=== PATIENT | female | born 1965 | race African-American/Black ===

== ENCOUNTER 2016-10-10 15:33 | Emergency (ER) | payer OTHER ==
[~2016-10-10] VITALS: Ht 154.9 cm; Wt 79.4 kg
[~2016-10-10 15:33] MED LIST: Hydrocodone/Acetaminophen PO
[2016-10-10 17:34] LABS: BILIRUBIN,URINE NEGATIVE (NEG); GLUCOSE,URINE NEGATIVE (NEG); NITRITE,URINE NEGATIVE (NEG); PROTEIN,URINE NEGATIVE (NEG-TRACE); UROBILINOGEN,URINE 0.2 mg/dL (0.2 mg/dL)
[2016-10-10 17:41] LABS: BACTERIA,URINE FEW /HPF (0-FEW); RBC,URINE RARE /HPF (0-2); SQUAMOUS EPITHELIAL CELL,UR MANY /LPF; WBC,URINE RARE /HPF (0-4)
--- NOTE | 2016-10-10 17:59 | PHYS DOC ---
Past Medical History Past Medical History: No Pertinent History Past Surgical History: , Hysterectomy Additional Past Surgical Histo: C-sec x3, Alcohol Use: None Drug Use: None Adult General Chief Complaint Chief Complaint: ABDOMINAL PAIN HPI HPI 51-year-old female presenting the emergency department with difficulty urinating. She reports having history of a hysterectomy. She reports her ability to urinate being positional. She reports when she lifts her legs she is able to urinate however when she does not she is unable to urinate. He was previously referred for to urologist however has not made an appointment. He also complains of mild swelling of her ankles bilaterally. She complains of bilateral flank pain. The pain is sharp mild intermittent nonradiating and without alleviating factors. Not associated with fever. Review of systems is negative for chest pain shortness of breath fevers or chills. All other review of systems is negative unless otherwise noted in history of present illness. Review of Systems Review of Systems SEE ABOVE. Allergies Allergies Allergies Coded Allergies Type Severity Reaction Last Updated Verified Penicillins Allergy Intermediate 04/12/16 Yes egg Allergy Intermediate hives 04/12/16 Yes Physical Exam Physical Exam Constitutional: Well developed, well nourished, no acute distress, non-toxic appearance. HENT: Normocephalic, atraumatic, bilateral external ears normal, oropharynx moist, no oral exudates, nose normal. [] Eyes: PERRLA, EOMI, conjunctiva normal, no discharge. Neck: Normal range of motion, no tenderness, supple, no stridor. No JVD present. Cardiovascular:Heart rate regular rhythm, no murmur [] Lungs & Thorax: Bilateral breath sounds clear to auscultation . No crackles. Abdomen: Soft nontender abdomen without rebound tenderness or guarding present. Negative McBurneys point. Negative Lira sign. No ecchymosis present. Skin: Warm, dry, no erythema, no rash. [] Back: No tenderness, I'm unable to reproduce any tenderness in the CVA region upon palpation. Extremities: No tenderness, no cyanosis, no clubbing, ROM intact, trace edema. Neurologic: Alert and oriented X 3, normal motor function, normal sensory function, no focal deficits noted. [] Psychologic: Affect normal, judgement normal, mood normal. Current Patient Data Vital Signs Vital Signs Date Time Temp Pulse Resp B/P Pulse Ox O2 Delivery O2 Flow Rate FiO2 10/10/16 17:28 81 20 103/56 100 10/10/16 16:51 98.8 Room Air 98.8 Lab Values Laboratory Tests Test 10/10/16 17:00 Urine Collection Type Unknown Urine Color Yellow Urine Clarity Clear Urine pH 7.0 Urine Specific [place] 1.020 Urine Protein Negativemg/dL (NEG-TRACE) Urine Glucose (UA) Negativemg/dL (NEG) Urine Ketones (Stick) Negativemg/dL (NEG) Urine Blood Negative (NEG) Urine Nitrite Negative (NEG) Urine Bilirubin Negative (NEG) Urine Urobilinogen Dipstick 0.2mg/dL (0.2 mg/dL) Urine Leukocyte Esterase Negative (NEG) Urine RBC Rare/HPF (0-2) Urine WBC Rare/HPF (0-4) Urine Squamous Epithelial Cells Many/LPF Urine Bacteria Few/HPF (0-FEW) Urine Mucus Slight/LPF EKG EKG [] Radiology/Procedures Radiology/Procedures [] Course & Med Decision Making Course & Med Decision Making Pertinent Labs and Imaging studies reviewed. (See chart for details) [] 51-year-old female presenting to the emergency department with positional urination and intermittent flank pain with mild swelling of her legs. On examination the patient's vital signs showed hypertension which I recommended the patient follow up with her primary care physician. Physical exam was otherwise unremarkable. Urinalysis obtained not suggestive of infection. The patient was subsequently discharged home and referred to our urology team within the next 4-5 days along with her primary care physician for hypertension management. Dragon Disclaimer Dragon Disclaimer This electronic medical record was generated, in whole or in part, using a voice recognition dictation system. Departure Departure Impression: Primary Impression: Flank pain Additional Impressions: Swelling of both ankles Urination disorder Disposition: HOME, SELF-CARE Condition: STABLE Referrals: NO PCP (PCP) DIANA FLOR PRATIP B MD Patient Instructions: Edema, [id number] Additional Instructions: Thank you for allowing us to participate in your care today. Follow-up with urology within the next 5 days. I have provided their information above. Follow-up with your primary care physician in the next 4-5 days for hypertension management.. If you do not have a primary care provider you can ask for a list of our primary care providers. Return to the emergency department you have any new or concerning findings. This should be evaluated by the primary care physician and any necessary consulting services for continued management within a few days after discharge. Return to emergency room if you have any new or concerning symptoms including but not limited to fever, chills, nausea, vomiting, intractable pain, any new rashes, chest pain, shortness of air, uncontrolled bleeding, difficulty breathing, and/or vision loss. Problem Qualifiers KEYANA TRAN MD Oct 10, 2016 17:59
[2016-10-10 18:16] VITALS: BP 129/84
== END 2016-10-10 18:16 | disposition home or self-care (01) ==
LOC: ER 15:33
DX: R39.198 Other difficulties with micturition (principal); R10.9 Unspecified abdominal pain; M79.89 Other specified soft tissue disorders; Z91.012 Allergy to eggs; Z88.0 Allergy status to penicillin; Z90.710 Acquired absence of both cervix and uterus
CPT/HCPCS: 81001; 99283

== ENCOUNTER 2016-12-18 22:57 | Emergency (ER) | payer SELFPAY ==
[~2016-12-18] VITALS: Ht 154.9 cm; Wt 79.4 kg
[2016-12-18 23:32] VITALS: BP 166/75
[2016-12-18] MEDS ORDERED: HYDR-971 PO (23:59)
[2016-12-18] MEDS ORDERED: NAPR500T8 PO (23:59)
[2016-12-18] MEDS ORDERED: CYCL10TA2 PO (23:59)
--- NOTE | 2016-12-18 23:59 | PHYS DOC ---
Past Medical History Past Medical History: No Pertinent History Past Surgical History: , Hysterectomy Additional Past Surgical Histo: C-sec x3, Alcohol Use: None Drug Use: None Adult General Chief Complaint Chief Complaint: BACK PAIN OR INJURY HPI HPI Patient is a 51 year old female with no significant medical history who presents today with left lateral mid back pain that began 4 days ago after lifting a chest while moving. Patient denies falling. She appears uncomfortable and is pacing in the room. Patient denies any pain radiating to bilateral lower extremities. Denies any loss of bowel bladder function. Review of Systems Review of Systems Constitutional: Denies fever or chills [] Eyes: Denies change in visual acuity, redness, or eye pain [] Musculoskeletal: Left lateral mid back pain Integument: Denies rash or skin lesions [] Neurologic: Denies headache, focal weakness or sensory changes [] Endocrine: Denies polyuria or polydipsia [] Allergies Allergies Allergies Coded Allergies Type Severity Reaction Last Updated Verified Penicillins Allergy Intermediate 04/12/16 Yes egg Allergy Intermediate hives 04/12/16 Yes Physical Exam Physical Exam Constitutional: Well developed, well nourished, no acute distress, non-toxic appearance. [] HENT: Normocephalic, atraumatic, bilateral external ears normal, oropharynx moist, no oral exudates, nose normal. [] Skin: Warm, dry, no erythema, no rash. [] Back: Diffuse paraspinal muscle tenderness to the left flank region, no midline tenderness, no CVA tenderness. [] Extremities: No tenderness, no cyanosis, no clubbing, ROM intact, no edema. [] Neurologic: Alert and oriented X 3, normal motor function, normal sensory function, no focal deficits noted. [] Psychologic: Affect normal, judgement normal, mood normal. [] Current Patient Data Vital Signs Vital Signs Date Time Temp Pulse Resp B/P Pulse Ox O2 Delivery O2 Flow Rate FiO2 12/18/16 23:32 98.4 62 18 100 Room Air 98.4 EKG EKG [] Radiology/Procedures Radiology/Procedures [] Course & Med Decision Making Course & Med Decision Making Pertinent Labs and Imaging studies reviewed. (See chart for details) Patient is in the ED with complaints of left lateral mid back pain after lifting a chest, she probably strained her flank region. She appears very uncomfortable in the ED. She has been pacing in the room in pain. She was given Valium morphine and Toradol in the ED. We talked about radiology studies. At this point that not indicated. Recommended muscle relaxer and pain medicine. Recommended following up with the PCP in the course of this week. Wilber Disclaimer Wilber Disclaimer This electronic medical record was generated, in whole or in part, using a voice recognition dictation system. Departure Departure Impression: Primary Impression: Strain of flank Disposition: 01 HOME, SELF-CARE Condition: STABLE Referrals: NO PCP (PCP) Follow-up with your doctor in the course of this week Patient Instructions: Muscle Strain Additional Instructions: You were seen for muscle strain. You can apply heat or ice to the affected area. Take the prescribed medicines as needed for pain. Follow-up with your doctor in the course of this week. Come back to the ED if symptoms worsen. Scripts Naproxen 500 Mg Tablet.dr1 Tab PO BID #60 TAB Ref 1 Prov:IRMA DURAN APRN 12/18/16 Hydrocodone/Apap 5-325 ([place] 5-325 Tablet)1 Each Tablet1-2 Tab PO Q4-6HRS #20 TAB Prov:IRMA DURAN APRN 12/18/16 Cyclobenzaprine Hcl 10 Mg Tablet1 Tab PO TID #30 TAB Prov:IRMA DURAN APRN 12/18/16 Problem Qualifiers Primary Impression: Strain of flank Encounter type: initial encounter Qualified Code: S39.011A - Strain of muscle, fascia and tendon of abdomen, initial encounter IRMA DURAN APRN Dec 18, 2016 23:59
[2016-12-19] MEDS ORDERED: MORPHINE SULFATE 10 MG/ML VIAL. IM ONE
[2016-12-19] MEDS ORDERED: KETOROLAC TROMETHAMINE 60 MG/2 ML INJ. IM ONE
[2016-12-19] MEDS ORDERED: DIAZEPAM 5 MG TABLET PO ONE
== END 2016-12-19 00:12 | disposition home or self-care (01) ==
LOC: ER 22:57
DX: S39.011A Strain of muscle, fascia and tendon of abdomen, initial encounter (principal); Z90.710 Acquired absence of both cervix and uterus; Z98.890 Other specified postprocedural states; Z88.0 Allergy status to penicillin; Z91.012 Allergy to eggs; X50.0XXA Overexertion from strenuous movement or load, initial encounter; Y93.89 Activity, other specified; Y99.8 Other external cause status; Y92.89 Other specified places as the place of occurrence of the external cause
CPT/HCPCS: 96372; 99284; J1885; J2270